=== PATIENT | female | born 1980 | race African-American/Black ===

== ENCOUNTER 2016-09-02 08:05 | Emergency (ER) | payer OTHER ==
--- NOTE | ~2016-09-02 | CR63 ---
[facility] A Service of [facility] & [facility] RADIOLOGY TEXT RESULTS PATIENT: RADHA VILLAFUERTE LOCATION: [facility] : [birth year] UNIT #: [id number] AGE: [address]: Jabari Kellogg MD SEX: F ORDER DR: [id number] [facility] [address] [place], [place] [address] [id number] MR#: [id number] Acc #: [id number] NAME: RADHA VILLAFUERTE : 1980 SEX: F STUDY DATE/TIME: 09/02/2016 8:46 UNIT: [facility] ROOM: STUDY DESCRIPTION: CR Chest 2 View Attending Physician: Radha Lizama P.A.-C. Ordering Physician: Radha Lizama P.A.-C. Primary Care Physician: Primary Care Physician No MEDICAL IMAGING REPORT This report is preliminary unless electronic signature is present EXAM PA and lateral chest INDICATION Cough, congestion and sore throat for 1 week. COMPARISON None available. FINDINGS Heart size upper normal. No acute infiltrate. Visualized osseous structures are unremarkable. IMPRESSION No active disease. Dictated by... Danyn Aceves M.D. THIS IS AN ELECTRONICALLY VERIFIED REPORT Danny Aceves M.D. at 09/03/2016 4:47 PM LEO/boby TD: 09/02/2016 09:49 JOB #: [id number] MEDICAL IMAGING REPORT Page 1 of 1 COPY
[2016-09-02 08:50] LABS: BASOPHIL# 0.1 X10e3 (0-0.3); BASOPHIL% 0.3 % (0-2.5); EOSINOPHIL# 0.1 X10e3 (0-0.7); EOSINOPHIL% 0.3 % (0.0-7.0); HEMATOCRIT 34.4 % (35.0-45.0); HEMOGLOBIN 10.8 gm/dL (12.0-16.0); LYMPHOCYTE# 2.3 X10e3 (1.0-3.5); LYMPHOCYTE% 9.4 % (17.0-45.0); MEAN CELL VOLUME 73.7 FL (83-96); MEAN CORPUSCULAR HEMOGLOBIN 23.1 PG (28-34); MEAN CORPUSCULAR HGB CONC 31.3 g/dL (30-36); MEAN PLATELET VOLUME 9.3 FL (6.5-11.5); MONOCYTE# 2.2 X10e3 (0-1.0); MONOCYTE% 8.7 % (3.0-12.0); NEUTROPHIL% 81.3 % (40-75); PLATELET COUNT 252 X10e3 (140-420); RED BLOOD COUNT 4.66 X10e (3.90-5.30); RED CELL DISTRIBUTION WIDTH 17.7 % (11.0-15.5); WHITE BLOOD COUNT 24.6 X10e3 (4.0-10.5)
[2016-09-02 08:52] LABS: DIFF IND YES
[2016-09-02 09:11] LABS: ANISOCYTOSIS SL; PLATELET ESTIMATE NORMAL (NORMAL); POIKILOCYTOSIS SL
[2016-09-02 09:12] LABS: CALCIUM SERUM 8.8 mg/dL (8.4-10.2); CREATININE SERUM 0.6 mg/dL (0.6-1.4); GLOM FILT RATE Estimated 138.8 mL/min (>60); POTASSIUM 3.5 mmol/L (3.5-5.1)
== END 2016-09-02 11:56 | disposition home or self-care (01) ==
LOC: CED 08:05
PROVIDERS: Physician Assistant
DX: J02.8 Acute pharyngitis due to other specified organisms (principal); B97.89 Other viral agents as the cause of diseases classified elsewhere; F41.9 Anxiety disorder, unspecified; K21.9 Gastro-esophageal reflux disease without esophagitis
CPT/HCPCS: 36415; 71020; 80048; 85025; 86308; 87651; 96361; 96374; 96375; 99284; J1100; J1885; J2765